=== PATIENT | female | born 1995 | race Caucasian/White ===

== ENCOUNTER 2016-09-25 19:34 | Emergency (ER) | payer OTHER ==
[2016-09-25 20:10] LABS: BILIRUBIN NEGATIVE (NEGATIVE); BLOOD 1+ Ery/uL (NEGATIVE); CLARITY CLEAR (CLEAR); COLOR YELLOW (YELLOW); GLUCOSE (U) NORMAL (NORMAL); KETONE (U) NEGATIVE (NEGATIVE); LEUKOCYTES 1+ Leu/uL (NEGATIVE); NITRITE NEGATIVE (NEGATIVE); PROTEIN NEGATIVE (NEGATIVE); UROBILINOGEN 0.2 mg/dL (0.2-1.0)
[2016-09-25 20:16] LABS: BACTERIA TRACE; MUCOUS TRACE; SQUAMOUS EPITHELIAL CELLS RARE; URINARY RBC RARE
[2016-09-25 20:30] LABS: BASOPHIL 0.4 % (0-2); EOSINOPHIL 2.8 % (0-5); HCT 37.6 % (37.0-47.0); HGB 13.1 g/dl (12.5-16.0); LYMPHOCYTE 28.7 % (15-48); MCH 28.4 pg (25.0-31.0); MCHC 34.8 g/dL (32.0-36.0); MCV 81.4 fL (78.0-100.0); MONOCYTE 6.2 % (0-12); MPV 9.2 fL (6.0-9.5); NEUTROPHIL 61.9 % (41-80); PLT 344 K/uL (150-400); RBC 4.62 M/uL (4.20-5.40); RDW 13.5 % (11.5-14.0); WBC 5.7 K/uL (4.0-10.5)
[2016-09-25 20:49] LABS: BILIRUBIN - TOTAL 0.3 mg/dL (0.1-1.0); CREATININE 0.8 mg/dL (0.5-1.0); GLOBULIN (CALCULATION) 2.7 g/dL (2.2-4.2); POTASSIUM 3.8 mmol/L (3.5-5.1); TOTAL PROTEIN 6.7 g/dL (6.4-8.3)
== END 2016-09-25 22:27 | disposition home or self-care (01) ==
LOC: FER 19:34
PROVIDERS: Nurse Practitioner
DX: K59.00 Constipation, unspecified (principal); R11.0 Nausea; Z87.19 Personal history of other diseases of the digestive system
CPT/HCPCS: 36415; 74000; 80053; 81001; 82150; 83690; 85025; 87339; 99284